=== PATIENT | female | born 1985 | race Two or more races ===

== ENCOUNTER 2025-02-21 01:14 | Day surgery (SDC) | payer MEDICAID, SELFPAY ==
[2025-02-21] VITALS (22 sets, daily range): BP systolic 88–141; BP diastolic 52–88; PULSE 45–87; RESP 14–23; TEMP 36.1–37; O2SAT 93–100; BMI 38.4
--- NOTE | 2025-02-21 01:33 | XR_ITS ---
Examination: Abdomen sonogram, Limited Date and time of exam: February 21, 2025 0142 hours INDICATIONS: Epigastric pain and nausea onset today Technique: Real-time tellez scale transabdominal sonographic images of the upper abdomen obtained. Findings: Normal gallbladder. Normal common bile duct 0.3 cm Pancreatic head 3.3 cm Liver 12.6 cm smooth contour Normal hepatopedal portal venous flow Patent IVC IMPRESSION: Normal gallbladder Normal common bile duct
--- NOTE | 2025-02-21 02:02 | PD.EDABDPN ---
ED Abdominal Pain RME/HPI General Chief Complaint: Abdominal Pain Stated complaint: ABD PAIN / NAUSEA X1DAY Time seen by provider: 02/21/25 01:32 Arrival date/time: 02/21/25 01:14 39F with no significant PMH presents to ED with 1 day of gen ab pain upper radiating down, and N/V. Patient denies hematuria/dysuria and vaginal bleeding. Limitations: no limitations Related Data Previous Rx's ?Medication ?Instructions ?Recorded docusate sodium 100 mg capsule 100 mg PO BID #14 caps 06/29/13 (Colace) ibuprofen 800 mg tablet 800 mg PO TID #30 tabs 06/29/13 oxycodone-acetaminophen 5 mg-325 1 tab PO Q4H PRN pain #10 tabs 02/21/25 mg tablet (Percocet) Allergies Allergy/AdvReac Type Severity Reaction Status Date / Time Penicillins Allergy Mild Rash Verified 02/21/25 18:10 Review of Systems Review of Systems Systems Reviewed: All systems reviewed, normal except as documented Constitutional Constitutional: Reports system reviewed and no additional complaints, except as documented, Denies fever(s) and Denies headache(s) ENT Ears, Nose, Mouth, and Throat: Denies disequilibrium and Denies headache(s) Cardiovascular Cardiovascular: Reports system reviewed and no additional complaints, except as documented, Denies chest pain and Denies dyspnea Respiratory Respiratory: Reports system reviewed and no additional complaints, except as documented, Denies cough and Denies dyspnea Gastrointestinal Gastrointestinal: Reports system reviewed and no additional complaints, except as documented, Reports as per HPI, Reports abdominal pain, Reports nausea and Reports vomiting Neurologic Neurologic: Reports system reviewed and no additional complaints, except as documented, Denies confusion, Denies disequilibrium and Denies headache(s) Psychiatric Psychiatric: Denies confusion Past Medical History Social History SMOKING STATUS: Never smoker ED Exam General Limitations: Present no limitations General appearance: Present alert and in no apparent distress Head Head exam: Present atraumatic Eye Eye exam: Present normal appearance, PERRL and EOMI ENT ENT exam: Present normal exam, normal oropharynx and mucous membranes moist Neck Neck exam: Present normal inspection, full ROM and trachea midline Chest Chest inspection: Present normal inspection and symmetric chest wall rise Respiratory Respiratory exam: Present normal lung sounds bilaterally Cardiovascular Cardiovascular exam: Present regular rate, normal rhythm and normal heart sounds Abdominal Exam Abdominal exam: Present soft, tenderness and normal bowel sounds Abdominal tenderness: Present mild Extremities Exam Extremities exam: Present normal inspection and full ROM Back Exam Back exam: Present normal inspection and full ROM Neurological Exam Neurological exam: Present alert, oriented X3 and CN II-XII intact Psychiatric Psychiatric exam: Present normal affect and normal mood Skin Skin exam: Present warm, dry, intact and normal color Course Quality Measures none Orders Category Date Time Status Place in Surgical Day Care Routine Admission 02/21/25 07:48 Active Activity as Tolerated Routine Care 02/21/25 07:48 Ordered COVID-19 Screening Questionnaire NOW Care 02/21/25 05:[address] Screening NOW Care 02/21/25 02:48 Active DC Home When Criteria Met . Care 02/21/25 14:30 Active Decision to Admit X1 Care 02/21/25 05:14 Completed Insert IV NOW Care 02/21/25 02:48 Active NPO NOW Care 02/21/25 05:15 Active Obtain Written Consent For: NOW Care 02/21/25 07:48 Active Consult to General Surgery Stat Cons 02/21/25 05:15 Ordered Diet NPO (NOW) Diet 02/21/25 05:15 Active Discharge Routine Discharge 02/21/25 18:[address] abdomen pelvis w con Stat Exams 02/21/25 02:48 Completed US gall bladder Stat Exams 02/21/25 01:33 Completed CBC Stat Lab 02/21/25 02:10 Completed CMP [Comprehensive Metabolic Panel] Stat Lab 02/21/25 02:10 Completed Drug Screen,Urine Stat Lab 02/21/25 02:20 Completed HCG Qualitative,Urine Stat Lab 02/21/25 02:20 Completed Lipase Stat Lab 02/21/25 02:10 Completed Urinalysis, C/S if Indicated Stat Lab 02/21/25 02:20 Completed Acetaminophen Ivpb [Ofirmev Inj] 100 ml Med 02/21/25 14:09 Discontinued IV .STK-MED Acetaminophen Tab [Tylenol Tab] Med 02/21/25 07:48 Active 650 mg PO Q6H PRN Bupivacaine Mpf 0.5% [Sensorcaine-Mpf Inj 0.5%] Med 02/21/25 13:35 Discontinued 30 ml .ROUTE .STK-MED ONE Cefoxitin [Mefoxin Inj] Med 02/21/25 14:13 Discontinued 1 gm .ROUTE .STK-MED ONE Cefoxitin [Mefoxin Inj] Med 02/21/25 14:13 Discontinued 1 gm .ROUTE .STK-MED ONE Dexamethasone Inj [Decadron Inj] Med 02/21/25 13:58 Discontinued 10 mg .ROUTE .STK-MED ONE Famotidine [Pepcid] Med 02/21/25 01:33 Discontinued 40 mg PO X1 ONE Ketorolac Inj [Toradol Inj] Med 02/21/25 07:48 Active 15 mg IVP Q6H PRN Midazolam Inj [Versed Inj] Med 02/21/25 13:59 Discontinued 2 mg .ROUTE .STK-MED ONE Morphine Inj Med 02/21/25 07:48 Active 4 mg IVP Q4H PRN Ondansetron Inj [Zofran Inj] Med 02/21/25 13:58 Discontinued 4 mg .ROUTE .STK-MED ONE Ondansetron Inj [Zofran Inj] Med 02/21/25 14:30 Discontinued 4 mg IVP X1 ONE Ondansetron Odt [Zofran Odt] Med 02/21/25 01:33 Discontinued 4 mg PO X1 ONE Propofol Inj [Diprivan Inj] Med 02/21/25 13:58 Discontinued 200 mg IV .STK-MED ONE Rocuronium Inj [Zemuron Inj] Med 02/21/25 14:09 Discontinued 100 mg .ROUTE .STK-MED ONE Simethicone [Mylicon Chew] Med 02/21/25 16:18 Discontinued 80 mg PO X1 ONE Sodium Chloride 0.9% 1000 ml [Ns] 1,000 ml Med 02/21/25 08:00 Active IV 125 mls/hr Sodium Chloride 0.9% 1000 ml [Ns] 1,000 ml Med 02/21/25 05:14 Discontinued IV 250 mls/hr Sugammadex Inj [Bridion Inj] Med 02/21/25 15:11 Discontinued 200 mg .ROUTE .STK-MED ONE cefTRIAXone/D5w 1gm IV premix [Rocephin/D5w 1gm IV Med 02/21/25 05:14 Discontinued premix] 1 gm in 50 ml IV X1 fentaNYL INJ [Sublimaze Inj] Med 02/21/25 13:59 Discontinued 100 mcg .ROUTE .STK-MED ONE fentaNYL INJ [Sublimaze Inj] Med 02/21/25 14:30 Discontinued 25 mcg IVP Q5M PRN fentaNYL INJ [Sublimaze Inj] Med 02/21/25 14:30 Discontinued 25 mcg IVP Q5M PRN fentaNYL INJ [Sublimaze Inj] Med 02/21/25 14:30 Discontinued 25 mcg IVP Q5M PRN metroNIDAZOLE/NS 500 MG IVPB [Flagyl 500 mg IV] Med 02/21/25 05:14 Discontinued 500 mg in 100 ml IV X1 mg Hyd/Al Hyd/Delvis Susp [Maalox Susp] Med 02/21/25 01:33 Discontinued 30 ml PO X1 ONE oxyCODONE/APAP 5/325 [Percocet 5/325] Med 02/21/25 18:09 Discontinued 1 tab PO X1 ONE Code Status Routine Oth 02/21/25 07:55 Ordered Oxygen Delivery PRN RT 02/21/25 14:30 Active Vital Signs Vital signs: Vital Signs Temperature 98.6 F 02/21/25 01:24 Pulse Rate 87 02/21/25 01:24 Respiratory Rate 18 02/21/25 01:24 Blood Pressure 125/80 02/21/25 01:24 Pulse Oximetry (%) 97 02/21/25 01:24 Oxygen Delivery Method Room Air 02/21/25 01:24 O2 at 97% on RA and WNLs Abdominal Pain MDM MDM Narrative MDM Narrative:: 39F with no significant PMH presents to ED with 1 day of gen ab pain upper radiating down, and N/V. Patient denies hematuria/dysuria and vaginal bleeding. Physical exam reveals mild generalized ab tenderness (upper > lower). Patient is afebrile, calm, and alert. US gallbladder unremarkable. Significant leukocytosis of 20k. CMP and lipase unremarkable. HCG/tox screen neg. UA clean. GI cocktail improved symptoms. CT reveals appy. Spoke to Dr. Donald, gen surg, who will come evaluate patient in AM. Patient eventually admitted for surgery and discharged same day. Patient data External records reviewed:: [facility] previous records Clinical information provided by:: patient Social determinants that could affect healthcare access:: none Patient has the following chronic illnesses:: none How is presenting disease/condition affected by chronic disease/condition?: no chronic disease Evaluation data The following diagnostics were reviewed and interpreted by me:: lab results and radiology exam(s) Lab and/or radiology exams considered but not ordered:: ordered Interpretation Summary: above Medications / Prescriptions Medications or Prescriptions considered but not ordered:: ordered Medication administrations:: Medication Administration History Acetaminophen (Acetaminophen 325 Mg Tablet) 650 mg PO Q6H PRN PRN Reason: PAIN SCALE 1-3 (mild Stop: 03/23/25 07:47 Sodium Chloride (Ns) 1,000 mls @ 125 mls/hr IV .Q8H TRINA Stop: 03/23/25 07:59 Last Admin: 02/21/25 10:08 Dose: 125 mls/hr Documented By: CARLOS ENRIQUE Ketorolac Tromethamine (Ketorolac Inj 30 Mg/Ml Vial) 15 mg IVP Q6H PRN PRN Reason: PAIN SCALE 4-6 (Moderate Stop: 02/26/25 07:47 Morphine Sulfate (Morphine Sulf Inj 10 Mg/Ml Vial) 4 mg IVP Q4H PRN PRN Reason: PAIN SCALE 7-10 (Severe Discontinued Medications Al Hydrox/Mg Hydrox/Simethicone (Mg Hyd/Al Hyd/Delvis (Maalox Reg) Susp 30 Ml Udc) 30 ml PO X1 ONE Stop: 02/21/25 01:34 Last Admin: 02/21/25 02:12 Dose: 30 ml Documented By: FRANCIS Bupivacaine HCl (Bupivacaine Mpf 0.5% 30 Ml Vial) Confirm Administered Dose 30 ml .ROUTE .STK-MED ONE Stop: 02/21/25 13:36 Cefoxitin Sodium (Cefoxitin Sod Inj 1 Gm Vial) Confirm Administered Dose 1 gm .ROUTE .STK-MED ONE Stop: 02/21/25 14:14 Cefoxitin Sodium (Cefoxitin Sod Inj 1 Gm Vial) Confirm Administered Dose 1 gm .ROUTE .STK-MED ONE Stop: 02/21/25 14:14 Dexamethasone Sodium Phosphate (Dexamethasone Sod Phos Inj 10 Mg/Ml Vial) Confirm Administered Dose 10 mg .ROUTE .STK-MED ONE Stop: 02/21/25 13:59 Famotidine (Famotidine 20 Mg Tablet) 40 mg PO X1 ONE Stop: 02/21/25 01:34 Last Admin: 02/21/25 02:12 Dose: 40 mg Documented By: FRANCIS Fentanyl Citrate (Fentanyl Cit Inj 50 Mcg/Ml Amp 2ml) Confirm Administered Dose 100 mcg .ROUTE .STK-MED ONE Stop: 02/21/25 14:00 Fentanyl Citrate (Fentanyl Cit Inj 50 Mcg/Ml Amp 2ml) 25 mcg IVP Q5M PRN; Protocol PRN Reason: PAIN SCALE 7-10 (Severe Stop: 02/21/25 16:31 Last Admin: 02/21/25 16:16 Dose: 25 mcg Documented By: Admin: 02/21/25 15:54 Dose: 25 mcg Documented By: CHRIS Fentanyl Citrate (Fentanyl Cit Inj 50 Mcg/Ml Amp 2ml) 25 mcg IVP Q5M PRN; Protocol PRN Reason: PAIN SCALE 4-6 (Moderate Stop: 02/21/25 16:31 Fentanyl Citrate (Fentanyl Cit Inj 50 Mcg/Ml Amp 2ml) 25 mcg IVP Q5M PRN; Protocol PRN Reason: PAIN SCALE 1-3 (mild Stop: 02/21/25 16:31 Ceftriaxone Sodium/Dextrose (Rocephin/D5w 1gm Iv Premix) 1 gm in 50 mls @ 100 mls/hr IV X1 ONE Stop: 02/21/25 05:43 Last Infusion: 02/21/25 06:34 Dose: Infused Documented By: Admin: 02/21/25 05:55 Dose: 100 mls/hr Documented By: CVL Metronidazole (Flagyl 500 Mg Iv) 500 mg in 100 mls @ 200 mls/hr IV X1 ONE Stop: 02/21/25 05:43 Last Infusion: 02/21/25 05:51 Dose: Infused Documented By: Admin: 02/21/25 05:23 Dose: 200 mls/hr Documented By: CVL Sodium Chloride (Ns) 1,000 mls @ 250 mls/hr IV .Q4H ONE Stop: 02/21/25 09:13 Last Infusion: 02/21/25 10:08 Dose: Infused Documented By: Admin: 02/21/25 05:22 Dose: 250 mls/hr Documented By: CVL Acetaminophen (Ofirmev Inj) Confirm Administered Dose 100 mls @ ud IV .STK-MED ONE Stop: 02/21/25 14:10 Midazolam HCl (Midazolam Inj 1 Mg/Ml Vial 2 Ml) Confirm Administered Dose 2 mg .ROUTE .STK-MED ONE Stop: 02/21/25 14:00 Ondansetron HCl (Ondansetron Odt 4 Mg Tabrap) 4 mg PO X1 ONE; Protocol Stop: 02/21/25 01:34 Last Admin: 02/21/25 02:12 Dose: 4 mg Documented By: FRANCIS Ondansetron HCl (Ondansetron Inj 2 Mg/Ml Inj 2 Ml) Confirm Administered Dose 4 mg .ROUTE .STK-MED ONE Stop: 02/21/25 13:59 Ondansetron HCl (Ondansetron Inj 2 Mg/Ml Inj 2 Ml) 4 mg IVP X1 ONE Stop: 02/21/25 14:31 Oxycodone/Acetaminophen (Oxycodone/Apap 5/325 Tablet) 1 tab PO X1 ONE Stop: 02/21/25 18:10 Last Admin: 02/21/25 18:13 Dose: 1 tab Documented By: TB Propofol (Propofol Inj 10 Mg/Ml Vial 20 Ml) Confirm Administered Dose 200 mg IV .STK-MED ONE Stop: 02/21/25 13:59 Rocuronium [place] (Rocuronium Inj 10 Mg/Ml Vial 10 Ml) Confirm Administered Dose 100 mg .ROUTE .STK-MED ONE Stop: 02/21/25 14:10 Simethicone (Simethicone 80 Mg Chew) 80 mg PO X1 ONE Stop: 02/21/25 16:19 Last Admin: 02/21/25 16:58 Dose: 80 mg Documented By: TB Sugammadex Sodium (Sugammadex Inj 100 Mg/Ml 2ml Vial) Confirm Administered Dose 200 mg .ROUTE .STK-MED ONE Stop: 02/21/25 15:12 above Consultations Consultation(s) initiated? (list below): Yes Diagnosis Differential diagnosis abdominal pain: abdominal pain, acute appendicitis, calculus of kidney, constipation, diverticulitis, endometriosis, gastroenteritis, pancreatitis, small bowel obstruction and other (gastritis, biliary disease) Most likely diagnosis given after review of the tests above:: appy Admission Indicated Admission indicated?: indicated Admission Request Was there a request for admission?: Yes Admission Attestation Admission request attestation: Discussed case with [Dr. Donald] from General Surgeon service regarding admission. Discussed patients ED course, exam findings, labs, and radiology results. The Surgeon [agrees] to accept the patient for admission. Disposition Plan Disposition Plan: Admit Discharge Plan Plan Patient Disposition: Other Care w/in Hosp (SDC/ABIGAIL) Problem List Clinical Impression: Acute appendicitis Patient/Caregiver Discharge Instructions Other Activity Instructions:: Kasie incisiones tienen pegamento para la piel que se caer? por s? solo y no es necesario reemplazarlo. No ser? necesario quitarle los puntos Podr?s volver a ducharte en 2 d?as, el 02/23. Evite ba?arse o nadar adalid 2 semanas. Evite levantar objetos que pesen m?s de 10 libras adalid 6 semanas Adalid la cirug?a llenamos tu abdomen de aire para poder eli las estructuras. Parte de ulises aire tiende a permanecer y causar dolor referido al hombro, as? larissa dolor al respirar profundamente. [place] mejorar? con el tiempo. Levantarse de la cama y caminar ayudar? a que el aire se absorba m?s r?pido. Puede edwardo ibuprofeno seg?n sea necesario entre dosis de percocet o en lugar de percocet si el dolor no es intenso. Si desarrolla un dolor que empeora, n?useas/v?mitos, fiebre o enrojecimiento en los sitios de la incisi?n, busque atenci?n en la dimitris de emergencias. Your incisions have skin glue on them which will fall off on its own and does not need to be replaced Your stitches will not need to be removed You may resume showering in 2 days, on 02/23 Avoid bathing or swimming for 2 weeks Avoid lifting objects greater than 10 pounds for 6 weeks During the surgery we fill your abdomen with air in order to see the structures. Some of this air tends to linger and cause pain that is referred to the shoulder as well as pain with deep breaths. This will improve with time. Being out of bed and walking will help the air to absorb faster You may take ibuprofen as needed between doses of percocet or instead of percocet if pain is not severe If you develop worsening pain, nausea/vomiting, fever or redness at the incision sites please seek care in ER
[2025-02-21] MEDS: ONDANSETRON ODT 4 MG TABRAP PO (02:12)
[2025-02-21] MEDS: MG HYD/AL HYD/SIME (Maalox Reg) SUSP 30 ML UDC PO (02:12)
[2025-02-21] MEDS: FAMOTIDINE 20 MG TABLET 40 MG PO (02:12)
[2025-02-21 02:28] LABS: Collection Type, Urine Clean Catch
[2025-02-21 02:28] LABS: Basophils # (Auto) 0.0 Thou/mm3 (0.0-0.2); Basophils % (Auto) 0 % (0-2.5); Eosinophils # (Auto) 0.0 Thou/mm3 (0.0-0.5); Eosinophils % (Auto) 0 % (0-10); Hematocrit 38.0 % (36.0-46.0); Hemoglobin 12.8 g/dL (12.0-16.0); Immature Granulocytes Auto 0.06 Thou/mm3 (0.00-0.00); Lymphocytes # (Auto) 1.0 Thou/mm3 (1.0-4.8); Lymphocytes % (Auto) 5 % (10-50); Mean Corpuscular HGB Conc 33.7 g/dl (31.0-37.0); Mean Corpuscular Hemoglobin 28.8 pg (25.0-35.0); Mean Corpuscular Volume 86 fL (80-100); Monocytes # (Auto) 0.9 Thou/mm3 (0.0-0.8); Monocytes % (Auto) 4 % (0-12); Neutrophils # (Auto) 17.8 Thou/mm3 (1.8-7.7); Neutrophils % (Auto) 90 % (37-80); Nucleated Red Blood Cell # 0.00 Thou/mm3 (0.00-0.00); Nucleated Red Blood Cell % 0 /100 WBC (0); Platelet Count 271 Thou/mm3 (140-440); RDW Standard Deviation 42.6 fL (36.4-46.3); Red Blood Count 4.44 Miln/mm3 (4.00-5.20); White Blood Count 19.8 Thou/mm3 (3.6-11.0)
[2025-02-21 02:34] LABS: HCG Qualitative,Urine Negative
[2025-02-21 02:35] LABS: Amorphous Crystals,Urine Present (Absent); Bacteria,Urine Rare; Bilirubin,Urine Negative (Negative); Blood,Urine 1+ (Negative); Clarity,Urine Turbid (Clear/Hazy); Color,Urine Lt-Yellow (Lt Yel-Yel); Culture Indicated,Urine Not Indicated; Glucose, Urine Negative (Negative); Ketones,Urine Negative (Negative); Leukocyte Esterase,Urine Negative (Negative); Nitrite,Urine Negative (Negative); PH,Urine 8.0 (5.0-7.0); Protein,Urine Negative (Neg - Trace); RBC,Urine 3 /hpf (0-3); Specific Gravity,Urine 1.020 (1.001-1.035); Squamous Epithelial Cell,Urine 1 /hpf (0-5); Urobilinogen,Urine Negative mg/dL (0.0-1.0); WBC,Urine < 1 /hpf (0-5)
[2025-02-21 02:41] LABS: Amphetamine/Methamp Scrn,U Negative (Negative); Barbiturate Screen,Urine Negative (Negative); Benzodiazepines Screen,Urine Negative (Negative); Benzoylecgonine Screen, Ur Negative (Negative); Fentanyl Screen,Urine Negative (Negative); Opiate Screen,Urine Negative (Negative); THC Screen,Urine Negative (Negative)
[2025-02-21 02:41] LABS: Alanine Aminotransferase 15 U/L (10-49); Albumin, Serum 4.4 gm/dL (3.5-5.0); Albumin/Globulin Ratio 1.6 (1.2-2.2); Alkaline Phosphatase 74 U/L (46-116); Anion Gap 9 (7-16); Aspartate Amino Transferase 20 U/L (0-34); BUN/Creatinine Ratio 13 Ratio (12-20); Bilirubin,Total 0.6 mg/dL (0.3-1.2); Blood Urea Nitrogen 9 mg/dL (9-23); Calcium 8.6 mg/dL (8.3-10.6); Calcium (Corrected) 8.6 mg/dL (8.5-10.1); Carbon Dioxide 26.3 mMol/L (20.0-31.0); Chloride 102 mMol/L (98-107); Creatinine (Component) 0.7 mg/dL (0.6-1.3); Estimated Creatinine Clearance 115.0 mL/min (>60); Globulin 2.7 gm/dL (2.3-3.5); Glucose 133 mg/dL (74-106); Lipase 25 U/L (12-53); Osmolality,Calculated 274 (275-295); Potassium 3.6 mMol/L (3.4-5.1); Sodium 137 mMol/L (136-145); Total Protein 7.1 gm/dL (5.7-8.2); eGFR > 60 See Note
--- NOTE | 2025-02-21 02:48 | XR_ITS ---
Examination: CT abdomen with intravenous contrast CT pelvis with intravenous contrast 2-D coronal reconstructions 2-D sagittal reconstructions Date and time of exam:February 21, 2025, 0323 hours INDICATIONS: Upper abdominal pain today with nausea. CTDI: vol (mGy) 26.71 DLP: (mGycm) 1168 Technique: Multiple axial sections of the abdomen and pelvis have been obtained. 64 slice high-resolution scanner used. 3 mm axial sections have been obtained, post intravenous injection of 60 cc [id number] 2-D sagittal, coronal reconstructions obtained. Low dose protocols were performed. One or more of the following dose reduction techniques were used; automated exposure control, adjustment of the mA and/or KV according to patient size, use of iterative reconstruction technique. Findings: No focal liver or splenic lesions No gallstones No pancreatic mass No renal or ureteral calculi, no hydronephrosis Aorta normal size Inflamed enlarged appendix medial to the cecum, axial images 118 through 128, no pelvic abscess or free air Urinary bladder is intact Partially retroverted uterus Advanced degenerative disc disease L5-S1 with grade 1 spondylolisthesis IMPRESSION: Acute appendicitis Negative for perforation or pelvic abscess
--- NOTE | 2025-02-21 04:11 | PRELIM_ITS ---
Gallbladder ultrasound. February 21, 2025 at 0142 hours Clinical history: Right upper quadrant and epigastric pain. Comparison: No prior study is available for comparison. Findings: The liver demonstrates increased echogenicity without mass or ductal dilatation. The main portal vein is patent and demonstrates hepatopetal flow. No gallbladder calculus, wall thickening or pericholecystic fluid is identified. The common duct is normal in caliber at 3 mm. The pancreas is partially obscured by bowel gas. No free fluid is demonstrated on the submitted images. Impression: No sonographic evidence of cholelithiasis, acute cholecystitis or biliary obstruction. Fatty infiltration of the liver. Report Electronically Signed By: Lonny Payan 02/21/2025 4:11:24 AM [EST]
--- NOTE | 2025-02-21 05:01 | PRELIM_ITS ---
CT scan of the abdomen and pelvis with intravenous contrast (axial sections with sagittal and coronal reformats) February 21, 2025 at 0332 hours Clinical History: Upper abdominal pain. Comparison: No prior study is available for comparison. Findings: The appendix is thickened, measuring 1 cm (axial images 146/123) with mild wall enhancement and periappendiceal fat stranding. There is no free fluid or free air. No evidence of bowel obstruction. The liver, gallbladder, spleen, pancreas, adrenals and kidneys are unremarkable. The urinary bladder is normal. The osseous structures are unremarkable. The lung bases are clear. Impression: Acute appendicitis without perforation or abscess. Discussion Details: Results verbally communicated to : Dr. Wei at 04:29 AM 02/21/2025 Report Electronically Signed By: Lonny Payan 02/21/2025 5:01:06 AM [EST]
[2025-02-21] MEDS: SODIUM CHLORIDE 0.9% 1000 ML 1,000 ML 250 ML IV (05:22)
[2025-02-21] MEDS: metroNIDAZOLE/NS 500 MG IVPB 500 MG/100 ML BAG 200 MG IV (05:23)
[2025-02-21] MEDS: cefTRIAXone/D5w 1gm IV premix 1 GM/50 ML BAG IV (05:55)
--- NOTE | 2025-02-21 07:49 | PD.SURHP ---
HPI HPI Spoke to patient with video phone freelance interpreter/translator ID# [id number] otherwise healthy presenting with abdominal pain. Patient reports pain began last night in the middle of the abdomen, unlike any pain she has had before, associated with nausea/vomiting. At the moment she feels the pain has improved but she does not have any appetite, her last meal was 5 PM yesterday. In ER she was found to have a white count of almost [address] findings consistent with acute appendicitis PMH: None PSH: C-sections Meds: None Allergies: NKDA Family history: No known cancers Review of Systems Review of Systems ROS Unobtainable: All systems reviewed & no additional complaints except as documented Constitutional Constitutional: Denies headache(s) ENT Ears, Nose, Mouth, and Throat: Denies disequilibrium and Denies headache(s) Neurologic Neurologic: Reports system reviewed and no additional complaints, except as documented, Denies confusion, Denies disequilibrium and Denies headache(s) Psychiatric Psychiatric: Denies confusion Meds Home Medications and Allergies Allergies Allergy/AdvReac Type Severity Reaction Status Date / Time Penicillins Allergy Mild Rash Verified 02/21/25 04:51 Exam Vital Signs Temp Pulse Resp BP Pulse Ox O2 Del Method 98.3 F 50 L 16 112/64 96 Room Air 02/21/25 06:44 02/21/25 06:44 02/21/25 06:44 02/21/25 06:44 02/21/25 06:44 02/21/25 06:44 Constitutional Constitutional: no acute distress Routine Respiratory Exam Respiratory: Present no resp distress Routine Abdominal Exam Abdominal: Present soft and tenderness (Moderate tenderness right lower quadrant, mild tenderness left lower quadrant); Absent distended, rebound or guarding Results Results: Laboratory Laboratory results: results reviewed Results: Imaging CT scan - abdomen: report reviewed and image reviewed Assessment & Plan Plan 39F presenting with signs and symptoms of acute appendicitis, with an Villarreal score of 7. I explained the alternative to surgery being treatment with antibiotics alone and that because she has no appendicolith this would be reasonable, however that there would be a chance of recurrent appendicitis. I also explained the benefits/risks of surgery including need for conversion to open, bleeding and secondary infection. Patient expressed understanding and ultimately prefers to have surgery Laparoscopic appendectomy, possible open today 02/21 Quality Measures Quality Measures none
--- NOTE | 2025-02-21 08:24 | EDNOTE_ITS ---
<Statement entered by Cristy Huynh MD - 02/21/25 15:16> As co-signing physician, I was present and available for consult prn. I concur with the plan and care as documented by the midlevel provider. Emergency Room Addendum Addendum Narrative: I assumed care of this 39-year-old female who presented to the emergency room with a chief complaint of generalized abdominal pain. The patient had a CT scan which showed acute appendicitis. The patient was waiting to be seen by the general surgeon Dr. Caceres. Dr. Caceres came and evaluated the patient and will take her to the OR and admit for acute appendicitis.
[2025-02-21] MEDS: SODIUM CHLORIDE 0.9% 1000 ML 1,000 ML 125 ML IV (10:08)
--- NOTE | 2025-02-21 15:34 | ESOP_ITS ---
Date of Procedure 03/19/25 Pre Op Diagnosis Acute appendicitis Post Op Diagnosis Same Procedure Laparoscopic appendectomy Findings Acutely inflamed appendix Procedure Description After discussion of risks and benefits with an automotive accessory installer, patient was brought to the operating room, SCDs were placed and general anesthesia was induced. She received preoperative antibiotics and was prepped and draped in the usual sterile fashion. After timeout an incision was made at the left upper quadrant 2 fingerbreadths inferior to the costal margin, in order to avoid her previous low midline incision. Towel clamps were placed on either side of the incision and a Veress needle was introduced. The standard Veress needle did not reach the peritoneum so along Veress needle was used and proper positioning was confirmed with a drop test. The abdomen was insufflated to 15 mmHg at which point the Veress needle was exchanged for a 5 mm camera using a Visiport technique. There were no signs of injury from the point of entry and there were no adhesions related to the previous incision. 3 additional ports were placed under direct vision, one 12 mm at the infraumbilical region, one 5 mm at the suprapubic region and one 5 mm in the left lower quadrant. Patient was placed in Trendelenburg with left side down. The appendix was identified by tracing the taenia of the colon and was noted to be acutely inflamed. A window was made between the base of the appendix and the mesoappendix using blunt dissection, and the base of the appendix was stapled using a 45 mm blue load. The mesoappendix was transected with the harmonic scalpel. During this there was some bleeding from the appendiceal artery which was controlled with clipping. The area was gently irrigated and there was some oozing which was controlled with Surgicel powder. The pelvis was irrigated and suctioned as well. The specimen was removed in an Endo Catch bag via the infraumbilical port, and the infraumbilical fascia was closed with 0 Vicryl suture using a Fernando-Sophia. Incisions were irrigated and infiltrated with half percent Marcaine for a total of 30 cc. Incisions were closed with 4-0 Monocryl and reinforced with Dermabond. Patient was extubated and brought to PACU in stable condition Pathology / specimen Other (Appendix) Estimated Blood Loss 50 Surgeon Tequila Donald MD Surgical Staff Operation Date: 02/21/25 13:30 Case Staff Anesthesiologist: Jaskaran Holliday lap machine tender: Joel Marcum
--- NOTE | 2025-02-21 15:39 | ESDS_ITS ---
Planned Discharge Date 02/21/25 DS: Providers Provider Primary care physician: Physician No Primary/Family Attending Provider on Admission: Tequila Donald MD Consults: 02/21/25 05:15 Consult to General Surgery Stat Comment: Consulting Provider: Tequila Donald Attending Provider on DC: Tequila Donald MD Discharging Provider: Tequila Donald MD Diagnosis Discharge Diagnosis (1) Acute appendicitis: Status: Acute Problem List Completed Was Problem List Reviewed/Reconciled?: Yes Exam Vital Signs Temp Pulse Resp BP Pulse Ox O2 Del Method 98.2 F 53 L 16 135/76 H 100 Room Air 02/21/25 12:36 02/21/25 12:36 02/21/25 12:36 02/21/25 12:36 02/21/25 12:36 02/21/25 12:36 Discharge Plan Plan Patient Disposition: HOME (Self Care) Prescriptions/Referrals Prescriptions/Med Rec: New oxycodone-acetaminophen [Percocet] 5-325 mg tablet 1 tab PO Q4H MDD 6 tabs PRN (Reason: pain) Qty: 10 0RF Rx Instructions: Take 1 tablet as needed every 4-6 hours for moderate to severe pain No Action ibuprofen 800 MG tablet 800 mg PO TID Qty: 30 0RF docusate sodium [Colace] 100 MG capsule 100 mg PO BID Qty: 14 0RF Referrals: Tequila Donald MD [Physician] - (You will receive a phone call to confirm a follow-up appointment with me in 2 weeks) No Primary/Family,Physician [Primary Care Provider] - In 1 week Patient/Caregiver Discharge Instructions Other Discharge Activity Instructions:: Your incisions have skin glue on them which will fall off on its own and does not need to be replaced Your stitches will not need to be removed You may resume showering in 2 days, on 02/23 Avoid bathing or swimming for 2 weeks Avoid lifting objects greater than 10 pounds for 6 weeks During the surgery we fill your abdomen with air in order to see the structures. Some of this air tends to linger and cause pain that is referred to the shoulder as well as pain with deep breaths. This will improve with time. Being out of bed and walking will help the air to absorb faster You may take ibuprofen as needed between doses of percocet or instead of percoce t if pain is not severe If you develop worsening pain, nausea/vomiting, fever or redness at the incision sites please seek care in ER Education Materials: Appendectomy Laparoscopic Dc Print Language: Tajik Stand Alone Forms: Margo Award Info., Patient Portal Info Letter Results Results: Laboratory Laboratory results: results reviewed Results: Imaging CT scan - abdomen: report reviewed and image reviewed PROCEDURES: Procedure Date 02/21/25 Procedures Laparoscopic appendectomy
--- NOTE | 2025-02-21 15:43 | SUR.PHASEI ---
1543: Pt. arrived with oral airway in place, vitals stable, breathing unlabored, no signs of distress, x3 dermabond sites to ABD CDI, no active bleed noted. Per MD Donald keep pt. for 2-4 hours and at 2 hour tray (174) call MD Donald to update her on pt. vitals and she will decide whether to keep pt. longer or to discharge her. MD Donald wants to observe pt. for this timeframe d/t the amount of bleeding pt. had and because MD Donald had to use 2 packs of surgicel to stop bleeding. Report received from MD Holliday and Clayton MACEDO.
[2025-02-21] MEDS: fentaNYL CIT INJ 50 mCg/ML AMP 2ML 25 MCG IVP ×2 (15:54→16:16)
--- NOTE | 2025-02-21 16:32 | SUR.PHASEII ---
1632: Pt. AAOx4, vitals stable, breathing unlabored, complaint of pain, no complaint of nausea, x3 dermabond sites to ABD CDI, report given to Camilla MACEDO to resume care.
[2025-02-21] MEDS: SIMETHICONE 80 MG CHEW PO (16:58)
--- NOTE | 2025-02-21 17:50 | SUR.PHASEII ---
Dr. Donald at bedside, okayed for pt. to be discharged home. Pt. VSS, has c/o pain 12/24, Dr. Donald ordered for pt. to have percocet 5 1 tab PO x1 prior to discharge.
--- NOTE | 2025-02-21 18:55 | SUR.PHASEII ---
Pt. meets criteria for discharge, VSS, provided oral pain medication per Dr. Donald order prior to discharge, lap sites x3 to abdomen CDI, IV discontinued without complications. Discharge instructions provided to pt. and pt.'s daughter, per pt. request daughter interpreted discharge instructions, verbalized understanding. Pt. escorted to vehicle via w/c with all of belongings.
== END 2025-02-21 18:55 | disposition home or self-care (01) ==
LOC: SERX 07:39 → S2EX 08:04
PROVIDERS: Physician Assistant; Emergency Provider Emergency Medicine; Referring Provider Surgery; Visit Provider Surgery
PROC: 0DTJ4ZZ Resection of Appendix, Percutaneous Endoscopic Approach (ICD-10-PCS; CPT 44970; principal; 2025-02-21 13:15)
DX: K35.30 Acute appendicitis with localized peritonitis, without perforation or gangrene (principal); K76.0 Fatty (change of) liver, not elsewhere classified
CPT/HCPCS: 44970; 36415; 74177; 76705; 80053; 80307; 81001; 81025; 83690; 85025; 96361; 96365; 99284; A4217; A4649; J0131; J0694; J0696; J1100; J2250; J2405; J2704; J3010; J3490; J7030; Q0162; Q9967; A9270; J1836

== ENCOUNTER 2025-03-10 10:39 | Outpatient (AMB) | payer MEDICAID, SELFPAY ==
[2025-03-10 10:47] VITALS: BP 138/95; PULSE 68; RESP 18; TEMP 36.6; O2SAT 98; BMI 39.9
--- NOTE | 2025-03-10 10:47 | PD.GSCLVISIT ---
Vital Signs - [facility] 03/10/25 10:47 Height 1.57 m Height Method Measured Weight 99.138 kg Weight Measurement Method Standing Scale BMI 39.9 BP 138/95 H Blood Pressure Source Automatic Cuff Blood Pressure Location Left Upper Arm Position Sitting Respiration 18 Pulse 68 Pulse Source Monitor Temp 97.8 F Temp Source Temporal Artery Scan Pulse Oximetry (%) 98 Oxygen Delivery Method Room Air Med/Allergies Allergies & Medications Allergies Penicillins Allergy (Mild, Verified 03/10/25 10:48) Rash Medication Reconciliation docusate sodium 100 mg capsule (Colace) 100 mg PO BID #14 caps 06/29/13 [Rx Confirmed 03/10/25] ibuprofen 800 mg tablet 800 mg PO TID #30 tabs 06/29/13 [Rx Confirmed 03/10/25] oxycodone-acetaminophen 5 mg-325 mg tablet (Percocet) 1 tab PO Q4H PRN pain #10 tabs 02/21/25 [Rx Confirmed 03/10/25] MA Intake Visit Data Collection New Patient or Established: Established Patient (seen at [facility] within 3 years) Seen by Clinical Staff ONLY (RN/MA): No Reason for Visit:: POST OP Pain Present Currently: No Pain Scale 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: 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 PCP or OBGYN visit in last 3 months: Yes Hx Now: No Do You Feel Safe at Home: Yes Authorities Contacted: N/A Smoking Status Smoking Status: Never smoker Immunization / Flu Flu Vaccine in the Last 12 Months: Yes Flu Vaccine Exclusion Criteria: Already Received Past Medical History Past Medical History NEUROLOGIC: Negative Seizures CARDIAC: Negative Cardiac Disorders or Congestive Heart Failure RESPIRATORY: Negative Chronic Obstructive Pulmonary Disease (COPD) or Asthma GENITOURINARY: Negative Renal Disease ENDOCRINE: Negative Diabetes Mellitus Type 1 or Diabetes Mellitus Type 2 HEMATOLOGIC: Negative Sickle Cell Disease OTHER HISTORY: Negative Blood Transfusions or Anesthesia Reactions Social History SMOKING STATUS: Smoking status: Never smoker HPI HPI Narrative 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 Pt reports she is having mild soreness at her incision sites but is not needing any medications, and she is eating well with regular bowel habits and no nausea/vomiting or fever. She has not had a colonoscopy but reports she had a stool test 3 mos ago with her PCP who advised her it was normal ROS Review of Systems Systems Reviewed: All systems reviewed, normal except as documented Objective/Exam General General Appearance: alert, cooperative and well groomed Resp Respiratory exam: Absent respiratory distress Abdominal Abdominal exam: Present soft and incision (c/d/i, no erythema, no fluctuance or tenderness); Absent distention or tenderness Results Pathology of appendix reviewed Assessment & Plan Diagnosis / Problem List (1) Acute appendicitis: Status: Acute Assessment & Plan: 39F s/p lap appendectomy for acute appendicitis 02/21/25, recovering well. I explained that colonoscopy is recommended due to research showing a high adenoma detection rate in pts 40 and older with appendicitis, however as she has already had a recent stool screening test pt prefers to continue with this methodology. I encouraged her to reach out with any concerns or questions Office Procedures GNS Level of Care Nursing/Assessment Patient Status: Established Patient Nursing Assessment/Reassesment: Medication Reconciliation, Update PMH in EMR and Vital Signs Coordination of Care: Complex Care and Chronic Disease 1-5, Consent,records obtained, informed consent, Education Simp Pt/Fam, Results/Orders obtained and Staff clarify orders Special Needs: Language special needs Established Patient Charge Established Patient Point Assignment: 90 Established Patient Point Charge: EP Level 3 (80-115) Patient Portal Questionaires Social History Tobacco History Smoking Status: Never smoker Domestic Abuse History Do You Feel Safe at Home: Yes Review of Systems Report any current symptoms Only answer those that you have currently: Past Medical History Past Medical History Have you ever been diagnosed with any of the following: Neurological Problems Seizures: No Cardiology Problems Congestive Heart Failure: No Respiratory Problems Chronic Obstructive Pulmonary Disease (COPD): No Asthma: No Genital/Urinary Problems Renal Disease: No Endocrine Problems Diabetes Mellitus Type 1: No Diabetes Mellitus Type 2: No Blood Problems Sickle Cell Disease: No Other Problems Blood Transfusions: No Anesthesia Reactions: No
== END 2025-03-10 11:30 | disposition home or self-care (01) ==
LOC: HODSRG 10:39
PROVIDERS: Supervising Provider Surgery; Visit Provider Surgery
DX: Z48.815 Encounter for surgical aftercare following surgery on the digestive system (principal)
CPT/HCPCS: 99213; G0463